=== PATIENT | female | born 1960 | race Caucasian/White ===

== ENCOUNTER 2017-05-20 03:12 | Emergency (ER) | payer BC ==
[~2017-05-20] VITALS: Ht 157.5 cm; Wt 50.4 kg
[2017-05-20 03:21] VITALS: TEMP 36.5; Ht 157.5 cm; Wt 50.4 kg
[2017-05-20] MEDS ORDERED: ONDANSETRON INJ 2 MG/ML 2 ML VIAL IV STA (03:33)
[2017-05-20] MEDS ORDERED: SODIUM CHLORIDE 0.9% 1000ML 1,000 ML IV STA ×2 (03:33)
[2017-05-20] MEDS ORDERED: MoRPHine SULFATE 4 MG/ML 1 ML CARP\\VIAL IV STA (03:33)
[2017-05-20 04:05] LABS: BASO % 0.6 %; BASO ABS # 0.04 K/uL (0-0.2); COMPLETE YES; EOS % 3.5 %; HEMATOCRIT 37.5 % (37-47); IG% 0.1 %; LYMPH % 30.2 %; LYMPH ABS # 2.05 K/uL (1.2-3.4); MEAN CELL VOLUME 94.5 fL (80-100); MEAN CORPUSCULAR HEMOGLOBIN 31.2 pg (25-34); MEAN CORPUSCULAR HGB CONC 33.1 g/dl (32-36); MONO % 10.9 %; NEUT % 54.7 %; PLATELET COUNT 150 K/uL (130-400); RED BLOOD COUNT 3.97 M/uL (4.2-5.4); WHITE BLOOD COUNT 6.79 K/uL (4.8-10.8)
[2017-05-20] MEDS ORDERED: CEPH500C2 PO (04:08)
[2017-05-20] MEDS ORDERED: OPTIRAY 320 IV PRN (04:15)
[2017-05-20 04:27] LABS: ALKALINE PHOSPHATASE 73 U/L (45-117); ALT/SGPT 35 U/L (12-78); AST/SGOT 35 U/L (15-37); BLOOD UREA NITROGEN 20 mg/dl (7-18); CALCIUM 8.9 mg/dl (8.5-10.1); CARBON DIOXIDE 25 mmol/L (21-32); CHLORIDE 108 mmol/L (98-107); GLUCOSE 139 mg/dl (70-99); SODIUM 140 mmol/L (136-145)
[2017-05-20] MEDS ORDERED: HYDROmorphone INJ 0.5 MG/0.5 ML SYR IV STA (04:33)
[2017-05-20 04:54] LABS: PREG INTERNAL NEGATIVE QC NEG CLEAR BACKGROUND; PREG INTERNAL POSITIVE QC POS CONTROL LINE
[2017-05-20 05:36] VITALS: BP 108/50; PULSE 67; O2SAT 97
[2017-05-20] MEDS ORDERED: KETOROLAC TROMETHAMINE 30 MG/ML VIAL IV STA (05:43)
[2017-05-20] MEDS ORDERED: OXYCODONE IR HOME PACK PO ONE (05:45)
[2017-05-20] MEDS ORDERED: ONDANSETRON HOME PACK 4MG OD TAB PO ONE (05:45)
[2017-05-20 06:02] LABS: URINE APPEARANCE CLEAR (CLEAR); URINE BILIRUBIN NEG (NEG); URINE COLOR YELLOW; URINE NITRITE NEG (NEG); URINE SPECIFIC GRAVITY > 1.045 (1.000-1.030); UROBILINOGEN NEG (NEG); ZZUR CULT IF INDIC CLEAN CATCH NO
[2017-05-20 06:13] LABS: MANUAL MICROSCOPIC REQUIRED? NO; REVIEW REQ? NO
--- NOTE | 2017-05-20 06:26 | EMERGENCY ROOM VISIT NOTE ---
History First contact with patient: 03:25 Chief Complaint: ABDOMINAL PAIN Stated Complaint: PAIN LT SIDE History of Present Illness The patient is a 56 year old female who presents to the Emergency Room with complaints of severe sudden onset of left side abdominal pain currently 10 out of 10. This pain woke her up from sleep. No history kidney stones. No history of ischemic colitis. Patient is postmenopausal. She has a virgin abdomen. Patient states nothing makes the pain better or worse. It does not radiate. Patient denies chest pain, dyspnea, fever, chills, vomiting, diarrhea , back pain, urinary symptoms. No injury to the area. Review of Systems See HPI for pertinent positives & negatives. A total of 10 systems reviewed and were otherwise negative. Past Medical/Surgical History None Social History Smoking Status: Never Smoker Smokeless Tobacco Use: No Alcohol Use: none Drug Use: none Marital Status: Housing Status: lives with family Current/Historical Medications Scheduled Cephalexin Monohydrate (Keflex), 500 MG PO PRN Allergies Coded Allergies: Attapulgite (Verified Allergy, Unknown, 05/20/17) Sulfa Drugs (Verified Allergy, Unknown, 05/20/17) Uncoded Allergies: *KAOLIN/PECTIN (Generic Allergy) (Allergy, Unknown, Y, 05/20/17) SULFA, KAOPECTATE (Allergy, Unknown, 11/08/02) Physical Exam Vital Signs Date Time Temp Pulse Resp B/P (MAP) Pulse Ox O2 Delivery O2 Flow Rate FiO2 05/20/17 05:36 67 16 108/50 97 Room Air 05/20/17 03:50 Room Air 05/20/17 03:21 36.5 69 20 143/57 100 Room Air Physical Exam VITALS: Vitals are noted on the nurse's note and reviewed by myself. Vital signs stable. GENERAL: White female writhing in pain, nondiaphoretic, well-developed well- nourished. SKIN: The skin was without rashes, erythema, edema, or bruising. There is no tenting of the skin. Capillary reflex less than 2 seconds. HEAD: Normocephalic atraumatic. EARS: External auditory canals clear, tympanic membranes pearly frankel without erythema or effusion bilaterally. EYES: Pupils equal round and reactive to light and accommodation. Conjunctivae without injection, sclerae without icterus. Extraocular movements intact. NOSE: Patent, turbinates without inflammation or discharge. MOUTH: Mucous membranes moist. Pharynx without erythema or exudate. Uvula midline. Airway patent. Tongue does not deviate. NECK: Supple without nuchal rigidity. No lymphadenopathy. No thyromegaly. Cervical spine is nontender. No JVD. HEART: Regular rate and rhythm without murmurs gallops or rubs. LUNGS: Clear to auscultation bilaterally without wheezes, rales or rhonchi. No dullness to percussion. No retractions or accessory muscle use. ABDOMEN: Positive bowel sounds x 4. Normal tympanic percussion. Soft, tender to palpation left lower abdomen, no CVA tenderness, without masses or organomegaly. Cook sign negative. No guarding or rebound tenderness. MUSCULOSKELETAL: No muscle atrophy, erythema, or edema noted. NEURO: Patient was alert and oriented to person place and time. Normal sensation to light and sharp touch. No focal neurological deficits. Medical Decision & Procedures Laboratory Results 05/20/17 03:50 Red Blood Count 3.97, Mean Corpuscular Volume 94.5, Mean Corpuscular Hemoglobin 31.2, Mean Corpuscular Hemoglobin Concent 33.1, Mean Platelet Volume 10.0, Neutrophils (%) (Auto) 54.7, Lymphocytes (%) (Auto) 30.2, Monocytes (%) (Auto) 10.9, Eosinophils (%) (Auto) 3.5, Basophils (%) (Auto) 0.6, Neutrophils # (Auto ) 3.71, Lymphocytes # (Auto) 2.05, Monocytes # (Auto) 0.74, Eosinophils # (Auto ) 0.24, Basophils # (Auto) 0.04 05/20/17 03:50 Test 05/20/17 03:50 05/20/17 03:57 05/20/17 05:50 White Blood Count 6.79 K/uL (4.8-10.8) Red Blood Count 3.97 M/uL (4.2-5.4) Hemoglobin 12.4 g/dL (12.0-16.0) Hematocrit 37.5 % (37-47) Mean Corpuscular Volume 94.5 fL (80-100) Mean Corpuscular Hemoglobin 31.2 pg (25-34) Mean Corpuscular Hemoglobin Concent 33.1 g/dl (32-36) Platelet Count 150 K/uL (130-400) Mean Platelet Volume 10.0 fL (7.4-10.4) Neutrophils (%) (Auto) 54.7 % Lymphocytes (%) (Auto) 30.2 % Monocytes (%) (Auto) 10.9 % Eosinophils (%) (Auto) 3.5 % Basophils (%) (Auto) 0.6 % Neutrophils # (Auto) 3.71 K/uL (1.4-6.5) Lymphocytes # (Auto) 2.05 K/uL (1.2-3.4) Monocytes # (Auto) 0.74 K/uL (0.11-0.59) Eosinophils # (Auto) 0.24 K/uL (0-0.5) Basophils # (Auto) 0.04 K/uL (0-0.2) RDW Standard Deviation 47.6 fL (36.4-46.3) RDW Coefficient of Variation 13.7 % (11.5-14.5) Immature Granulocyte % (Auto) 0.1 % Immature Granulocyte # (Auto) 0.01 K/uL (0.00-0.02) Anion Gap 7.0 mmol/L (3-11) Est Creatinine Clear Calc Drug Dose 50.9 ml/min Estimated GFR () 74.0 Estimated GFR (Non- 63.8 BUN/Creatinine Ratio 20.0 (10-20) Calcium Level 8.9 mg/dl (8.5-10.1) Total Bilirubin 0.8 mg/dl (0.2-1) Direct Bilirubin mg/dl (0-0.2) Aspartate Amino Transf (AST/SGOT) 35 U/L (15-37) Alanine Aminotransferase (ALT/SGPT) 35 U/L (12-78) Alkaline Phosphatase 73 U/L (45-117) Total Protein 6.6 gm/dl (6.4-8.2) Albumin 3.7 gm/dl (3.4-5.0) Lipase 198 U/L (73-393) Human Chorionic Gonadotropin, Qual POS (NEG) Chemistry Specimen Hemolysis Bedside Lactic Acid Venous 2.65 mmol/L (0.90-1.70) Urine Color YELLOW Urine Appearance CLEAR (CLEAR) Urine pH 7.0 (4.5-7.5) Urine Specific [place] > 1.045 (1.000-1.030) Urine Protein NEG (NEG) Urine Glucose (UA) NEG (NEG) Urine Ketones 1+ (NEG) Urine Occult Blood 1+ (NEG) Urine Nitrite NEG (NEG) Urine Bilirubin NEG (NEG) Urine Urobilinogen NEG (NEG) Urine Leukocyte Esterase NEG (NEG) Urine WBC (Auto) 1-5 /hpf (0-5) Urine RBC (Auto) 5-10 /hpf (0-4) Urine Hyaline Casts (Auto) 1-5 /lpf (0-5) Urine Epithelial Cells (Auto) 10-20 /lpf (0-5) Urine Bacteria (Auto) NEG (NEG) Medications Administered Medications (Trade) Dose Ordered Sig/Angela Route Start Time Stop Time Status Last Admin Dose Admin Morphine Sulfate (MoRPHine SULFATE INJ) 4 mg NOW STAT IV 05/20/17 03:33 05/20/17 03:35 DC 05/20/17 04:03 4 MG Ondansetron HCl (Zofran Inj) 4 mg NOW STAT IV 05/20/17 03:33 05/20/17 03:35 DC 05/20/17 04:03 4 MG Sodium Chloride 1,000 ml @ 999 mls/hr Q1H1M STAT IV 05/20/17 03:33 05/20/17 04:33 DC 05/20/17 03:33 999 MLS/HR Hydromorphone HCl (Dilaudid Inj) 0.5 mg NOW STAT IV 05/20/17 04:33 05/20/17 04:34 DC 05/20/17 05:02 0.5 MG Ketorolac Tromethamine (Toradol Inj) 30 mg NOW STAT IV 05/20/17 05:43 05/20/17 05:44 DC 05/20/17 06:00 30 MG ED Course Prior records/ancillary studies reviewed. Triage Nursing notes reviewed. Additional history obtained from family. The patient's history was concerning for abdominal pain. Differential diagnosis: Etiologies such as appendicitis, diverticulitis, PUD, biliary pathology, UTI, pancreatitis, obstruction, mesenteric ischemia, aortic pathology, infections, inflammatory bowel disease, renal colic, as well as others were entertained. Physical examination findings: As above. ER treatment provided: Morphine, Dilaudid, Zofran, IV fluids On reassessment the patient felt better. Diagnostics interpreted by me: The labs revealed no leukocytosis, elevated lactic acid. Stable H&H Imaging studies: CT scan is concerning for left ureteral stone with hydronephrosis Exam and history seem consistent with left renal colic. Patient's pain was under control. She is advised to strain her urine and to follow-up urology to few days or here in the ER sooner for severe pain, fevers, vomiting, worsening signs or symptoms or as needed. Patient was neurovascularly and neurologically intact. She is well-appearing. No signs of UTI. By the evaluation outlined above emergent etiologies such as appendicitis, diverticulitis, PUD, biliary pathology, UTI, pancreatitis, obstruction, mesenteric ischemia, aortic pathology, infections, inflammatory bowel disease, as well as others were deemed relatively unlikely. The pt informed about the findings as listed above. All questions were answered and pleased with the treatment. Return instructions were outlined and the patient was discharged in stable condition. Outpatient prescription management: OxyIR, Zofran Referral: The patient was referred back to their primary care physician and urology for follow-up in 2 to 3 days for a recheck of the current condition. Case reviewed with my attending Medical Decision As above Impression Primary Impression: Renal colic on left side Departure Information Dispostion Home / Self-Care Condition GOOD Referrals No Doctor, Assigned (PCP) Patient Instructions My [facility] Additional Instructions DO NOT drive, drink alcohol, operate machinery, or perform dangerous activities today. You were given medications in the ER that can affect your ability to safely function or operate a vehicle. Oxycodone Immediate Release (OxyIR) 5mg: Take 1-2 pills every four hours for pain. Avoid alcohol, operating machinery or dangerous equipment, working on ladders or roofs, DRIVING, or situations where being under the influence may be dangerous. It is recommended to use an lyua-uir-vxyhzpz stool softener such as Colace, 100mg twice daily while taking this medication to avoid constipation. Zofran 4 mg: Take one every six hours as needed for nausea. Avoid alcohol, operating machinery or dangerous equipment, working on ladders or roofs, DRIVING , or situations where being under the influence may be dangerous. Ibuprofen(Motrin, Advil) may be used for fever or pain. Use 600mg every six hours as needed. Take with food. Avoid using more than 2400mg in a 24 hour period. Do not use 2400mg per day for more than three consecutive days without physician direction. Prolonged inappropriate use can lead to stomach upset or ulcers. This medication can be taken if you need to drive, work, or perform activities which may be dangerous when taking narcotic pain medication. (AND/OR) Acetaminophen(Tylenol) may be used for fever or pain. Use 1000mg every six hours as needed. Avoid using more than 3000mg in a 24 hour period. This medication can be taken if you need to drive, work, or perform activities which may be dangerous when taking narcotic pain medication. Strain your urine and collect all the stones or debris for the urologists. Rest and avoid strenuous activity until your stone passes and symptoms resolve. Drink plenty of fluids. Continue current medications. Return to the ER for worsening abdominal or back pain, vomiting, fevers, passing out, or as needed. Follow up with urology in 2-3 days, call for an appointment.
[2017-05-20] MEDS ORDERED: OXYC1TAB3 PO (06:31)
--- NOTE | 2017-05-20 07:57 | DIAGNOSTIC IMAGING REPORT ---
CT SCAN OF THE ABDOMEN AND PELVIS WITH IV CONTRAST CLINICAL HISTORY: Left-sided abdominal pain. COMPARISON STUDY: No priors. TECHNIQUE: Following the IV administration of 92 cc of Optiray 320, CT scan of the abdomen and pelvis is performed from the lung bases to the proximal femora. Images are reviewed in the axial, sagittal, and coronal planes. IV contrast was administered without complication. Automated dose control exposure was utilized. A dose lowering technique was utilized adhering to the principles of ALARA. CT DOSE: 245.47 mGy.cm FINDINGS: Lung bases: The heart is normal in size and without pericardial effusion. There is a fat-containing Bochdalek hernia at the left lung base. The lung bases are otherwise clear. Liver: The contrast-enhanced liver is normal in size, contour, and attenuation. There is no intrahepatic biliary ductal dilatation. The hepatic veins and portal veins are patent. Periportal edema is noted and likely related to hydration status. Gallbladder: Unremarkable. Spleen: Normal in size and attenuation. Pancreas: Unremarkable. Adrenal glands: Unremarkable. Kidneys: The contrast enhanced kidneys are normal in size. There is a 7 mm obstructing calculus at the left vesicoureteral junction seen on axial image #324. This causes mild to moderate left hydroureteronephrosis. There is associated left-sided perinephric stranding and fluid. Nonspecific urothelial thickening is seen within the left ureter and the left renal pelvis. At least 4 additional nonobstructing left renal calculi measuring up to 5 mm. No right renal calculi are clearly identified on this contrast-enhanced examination. A 2.3 cm cyst is noted in the interpolar left kidney. The kidneys enhance symmetrically. Abdominal vasculature: The abdominal aorta is normal in course and caliber. Bowel: The small bowel and colon are normal in course and caliber. The appendix is well-visualized and normal. Peritoneum: There is no intraperitoneal free air or abdominal ascites. There is a small fat-containing umbilical hernia. Lymphadenopathy: None. Pelvic viscera: The bladder, uterus, and adnexa are normal as visualized. Skeletal structures: The skeletal structures are osteopenic. No lytic or blastic lesions are seen. IMPRESSION: 1. There is a 7 mm obstructing calculus at the left vesicoureteral junction. This causes mild to moderate left-sided hydroureteronephrosis. 2. Additional nonobstructing left calculi are identified. 3. Nonspecific urothelial thickening is seen in lateral renal pelvis and the left ureter. This is likely related to obstruction. Correlate clinically and with urinalysis for evidence of superimposed infection. 4. There is hepatic periportal edema, likely related to aggressive fluid resuscitation. Electronically signed by: Ramos Piper M.D. 05/20/2017 7:56 AM Dictated Date/Time: 05/20/2017 7:49 AM
[2017-06-09] MEDS ORDERED: TRIA1SPR4 NAE (14:12)
[2017-06-09] MEDS ORDERED: PRMVC TOP (14:12)
[2017-06-10] MEDS ORDERED: HYDR-3419 PO (11:05)
== END 2017-05-20 06:50 | disposition home or self-care (01) ==
LOC: C.EDB 03:13
DX: N23 Unspecified renal colic (principal)

== ENCOUNTER → 2017-06-07 | Outpatient (CLI) | payer BC ==
[~2017-06-07] MED LIST: CEPH500C2 PO; HYDR-3419 PO; OXYC1TAB3 PO; PRMVC TOP; TRIA1SPR4 NAE
--- NOTE | 2017-06-07 08:46 | DIAGNOSTIC IMAGING REPORT ---
KUB CLINICAL HISTORY: N39.0 Urinary tract [id number] COMPARISON STUDY: No previous studies for comparison. FINDINGS: The soft tissues, psoas shadows, renal outlines and intestinal gas pattern appear normal. There is no evidence for bowel obstruction. No abnormal abdominal calcifications are seen. IMPRESSION: Normal study. The above report was generated using voice recognition software. It may contain grammatical, syntax or spelling errors. Electronically signed by: Alonso Adhikari M.D. 06/07/2017 8:44 AM Dictated Date/Time: 06/07/2017 8:44 AM
== END | disposition home or self-care (01) ==
LOC: C.RAD 08:24
PROVIDERS: ATTEND Urology
DX: N39.0 Urinary tract infection, site not specified (principal)

== ENCOUNTER → 2017-06-08 | Outpatient (CLI) | payer BC ==
--- NOTE | 2017-06-08 18:29 | DIAGNOSTIC IMAGING REPORT ---
CHEST 2 VIEWS ROUTINE CLINICAL HISTORY: NEPHROLITHIASIS preoperative evaluation COMPARISON STUDY: No previous studies for comparison. FINDINGS: The bones soft tissues and hemidiaphragms are normal. The cardiomediastinal silhouette is normal. The lungs are clear. The pulmonary vasculature is normal. IMPRESSION: Negative chest. The above report was generated using voice recognition software. It may contain grammatical, syntax or spelling errors. Electronically signed by: Alonso Adhikari M.D. 06/08/2017 6:27 PM Dictated Date/Time: 06/08/2017 6:27 PM
[2017-06-08 18:59] LABS: PREG INTERNAL NEGATIVE QC NEG CLEAR BACKGROUND; PREG INTERNAL POSITIVE QC POS CONTROL LINE
== END | disposition home or self-care (01) ==
LOC: C.CPL 17:45
PROVIDERS: ATTEND Urology
DX: E34.9 Endocrine disorder, unspecified (principal); N20.0 Calculus of kidney

== ENCOUNTER → 2017-06-10 | Day surgery (SDC) | payer BC ==
[2017-06-09 14:12] VITALS: Ht 157.5 cm; Wt 48.6 kg
[~2017-06-10] VITALS: Ht 157.5 cm; Wt 48.6 kg
[~2017-06-10] MED LIST changes: +ATROPINE SULFATE 0.1 MG/ML 5ML SYR IV PRN; +CIPROFLOXACIN / D5W 400 MG IV SCH; +DEXAMETHASONE SOD INJ 4 MG/ML VIAL ONE; +EpHEDrine SULFATE INJ 50 MG/ML AMP IV PRN; +FENTANYL CITRATE INJ 50 MCG/1 ML 2 ML VIAL IV PRN; +FENTANYL CITRATE INJ 50 MCG/1 ML 2 ML VIAL ONE; +LACTATED RINGER'S 1000ML 1,000 ML IV SCH; +LIDOCAINE HCL 2% 2 ML VIAL (20MG/ML) ONE; +MIDAZOLAM HCL 1 MG/ML 2ML VIAL ONE; +ONDANSETRON INJ 2 MG/ML 2 ML VIAL ONE; -OXYC1TAB3 PO; +PROPOFOL IV EMULSION 10 MG/ML 20 ML VIAL IV ONE
--- NOTE | 2017-06-10 08:11 | DIAGNOSTIC IMAGING REPORT ---
KUB HISTORY: Left ureteral stone. COMPARISON: Abdomen and pelvis CT 05/20/2017. FINDINGS: The bowel gas pattern is unremarkable. There are no dilated loops of small bowel to suggest an obstruction. No change in the 5 mm stone within the left ureterovesical junction. No right ureteral calculi. A few punctate left renal calculi remain unchanged. No definite right renal calculi. No pneumoperitoneum or pneumatosis. IMPRESSION: 1. No change in the 5 mm stone within the left ureterovesical junction. 2. Stable left-sided nephrolithiasis. Electronically signed by: Luis Larkin M.D. 06/10/2017 8:09 AM Dictated Date/Time: 06/10/2017 8:08 AM
--- NOTE | 2017-06-10 09:45 | History & Physical Bridge - SC ---
H&P Re-Evaluation Bridge Note: I have examined the patient, reviewed the History & Physical and in the interval since the performance of the History & Physical I have noted the following changes of clinical significance: No changes noted
--- NOTE | 2017-06-10 10:34 | Discharge Instructions-SurgCtr ---
Discharge Instructions Date of Service Jun 10, 2017. Visit Reason for Visit: Stones Discharge Discharge Diagnosis / Problem: post op l ureteral eswl Discharge Goals Goal(s): Improve disease control Medications Stopped Medications Name(s): Pt. was told not to take any Ibuprofen. Activity Recommendations Activity Limitations: resume your previous activity Anesthesia . Post Anesthesia Instructions: If you have had General Anesthesia or IV Sedation: * Do not drive today. * Resume driving when surgeon permits. * Do not make important decisions or sign legal documents today. * Call surgeon for: 1. Temperature elevations greater than 101 degrees F. 2. Uncontrollable pain. 3. Excessive bleeding. 4. Persistent nausea and vomiting. 5. Medication intolerance (nausea, vomiting or rash). * For nausea and vomiting use only clear liquids such as: tea, soda, bouillon until nausea subsides, then gradually increase diet as tolerated. * If you have any concerns or questions, call your surgeon's office. If physician is unavailable and it is an emergency, call 911 or go to the nearest emergency room. . Diet Recommendations Home Diet: resume previous diet Procedures Procedures Performed: Left Extracorporeal Shock Wave Lithotripsy Pending Studies Studies pending at discharge: no Medical Emergencies . Who to Call and When: Medical Emergencies: If at any time you feel your situation is an emergency, please call 911 immediately. . Non-Emergent Contact Non-Emergency issues call your: Urologist . . "Provider Documentation" section prepared by Otis Gaona. .
--- NOTE | 2017-06-10 10:35 | [facility] Post Operative Brief Note ---
Immediate Operative Summary Operative Date Jun 10, 2017. Pre-Operative Diagnosis Left Ureteral Stone Post-Operative Diagnosis Same Procedure(s) Performed Left Extracorporeal Shock Wave Lithotripsy Surgeon Dr. Gaona Abrasives Sales Representative Surgeon(s) None Estimated Blood Loss 0 mL Findings stone appeared contract associate Specimens None
--- NOTE | 2017-06-10 10:55 | Anesthesia Progress Nt - [facility] ---
Anesthesia Post Op Note Date & Time Jun 10, 2017 at 10:54 Vital Signs Pain Intensity: 0 Vital Signs Past 12 Hours Date Time Temp Pulse Resp B/P (MAP) Pulse Ox O2 Delivery O2 Flow Rate FiO2 06/10/17 10:35 36.3 70 12 129/84 100 Diffusion Mask 5 06/10/17 08:16 36.3 65 16 115/71 (86) 98 Room Air Notes Mental Status: alert / awake / arousable, participated in evaluation Pt Amnestic to Procedure: Yes Nausea / Vomiting: adequately controlled Pain: adequately controlled Airway Patency, RR, SpO2: stable & adequate BP & HR: stable & adequate Hydration State: stable & adequate Anesthetic Complications: no major complications apparent
--- NOTE | 2017-06-10 11:09 | OPERATIVE REPORT ---
DATE OF OPERATION: 06/10/2017 PREOPERATIVE DIAGNOSIS: Left ureterovesical junction stone. POSTOPERATIVE DIAGNOSIS: Same. PROCEDURE PERFORMED: Left ureteral ESWL. SURGEON: Dr. Gaona. ANESTHESIA: General. INDICATIONS: The patient is a 56-year-old female with a history of a left UVJ stone being diagnosed on CT scan. The patient did not have any surrounding phleboliths. Thus she presented to my office. Her pain was moderately well controlled, but she did still have some urgency. She came back after 10 days and had a KUB that showed persistence of a calcification consistent with a stone at the left UVJ. We discussed options including lithotripsy, ureteroscopy and further observation. She wished to proceed with lithotripsy. I did observe her previous labs and it was apparent she had a positive test at the hospital prior to CT scan. Repeated this, it was also positive, but then did HCG which showed HCG was 4, which is just above normal not consistent with . Also, she had previously not had any periods for many years, consistent with being menopausal. I did discuss this with Dr. Lara who suggested there was extraneous activity probably with the serum and that HCG was not consistent with which the guidelines for the values of HCG showed. In addition, we tested her urine test today and it was negative. Thus we proceeded with lithotripsy. DESCRIPTION OF THE PROCEDURE: The patient was taken to the operating room, given general anesthesia. She had Venodyne stockings placed prior to this and then was given antibiotics. The stone was visualized. She was given 3000 shocks, the majority at level 5. We did not go to 6. At the end of the procedure, there was no visible stone. The patient was transferred to the recovery room in stable condition. I attest to the content of the Intraoperative Record and any orders documented therein. Any exceptions are noted below. MATTHEW
[2017-06-10 11:13] VITALS: TEMP 36.4
[2017-06-10 11:54] VITALS: BP 134/62; PULSE 53; O2SAT 100
== END | disposition home or self-care (01) ==
LOC: X.SURG 07:55
PROVIDERS: ATTEND Urology
DX: N20.1 Calculus of ureter (principal); N30.00 Acute cystitis without hematuria; N39.0 Urinary tract infection, site not specified; N76.2 Acute vulvitis

== ENCOUNTER → 2017-06-21 | Outpatient (CLI) | payer BC ==
[~2017-06-21] MED LIST changes: -ATROPINE SULFATE 0.1 MG/ML 5ML SYR IV PRN; -CIPROFLOXACIN / D5W 400 MG IV SCH; -DEXAMETHASONE SOD INJ 4 MG/ML VIAL ONE; -EpHEDrine SULFATE INJ 50 MG/ML AMP IV PRN; -FENTANYL CITRATE INJ 50 MCG/1 ML 2 ML VIAL IV PRN; -FENTANYL CITRATE INJ 50 MCG/1 ML 2 ML VIAL ONE; -LACTATED RINGER'S 1000ML 1,000 ML IV SCH; -LIDOCAINE HCL 2% 2 ML VIAL (20MG/ML) ONE; -MIDAZOLAM HCL 1 MG/ML 2ML VIAL ONE; -ONDANSETRON INJ 2 MG/ML 2 ML VIAL ONE; -PROPOFOL IV EMULSION 10 MG/ML 20 ML VIAL IV ONE
--- NOTE | 2017-06-21 07:43 | DIAGNOSTIC IMAGING REPORT ---
KUB CLINICAL HISTORY: N20.0 nephrocalcinosis COMPARISON STUDY: 06/10/2017 FINDINGS: The soft tissues, psoas shadows, renal outlines and intestinal gas pattern appear normal. There is no evidence for bowel obstruction. Several left renal abdominal calcifications are seen. Calcifications process described distal left ureter appears to have passed. IMPRESSION: 1. Interval passage of the distal left ureteral calculus. 2. Unchanging left nephrocalcinosis. The above report was generated using voice recognition software. It may contain grammatical, syntax or spelling errors. Electronically signed by: Alonso Adhikari M.D. 06/21/2017 7:41 AM Dictated Date/Time: 06/21/2017 7:39 AM
== END | disposition home or self-care (01) ==
LOC: C.RAD 07:17
PROVIDERS: ATTEND Urology
DX: N20.0 Calculus of kidney (principal)

== ENCOUNTER → 2017-06-22 | Outpatient (CLI) | payer BC | END | disposition home or self-care (01) | LOC: C.LABSPEC 11:33 | PROVIDERS: ATTEND Urology | DX: N20.0 Calculus of kidney (principal) ==

== ENCOUNTER → 2017-12-09 | Outpatient (CLI) | payer OTHER ==
--- NOTE | 2017-12-09 13:54 | MAMMOGRAPHY REPORT ---
BILATERAL DIGITAL SCREENING MAMMOGRAM TOMOSYNTHESIS WITH CAD: 12/09/2017 CLINICAL HISTORY: Routine screening. Patient has no complaints. TECHNIQUE: Breast tomosynthesis in addition to standard 2D mammography was performed. Current study was also evaluated with a Computer Aided Detection (CAD) system. COMPARISON: Comparison is made to exam dated: 04/08/2009. BREAST COMPOSITION: The tissue of both breasts is heterogeneously dense, which may obscure small mas ses. FINDINGS: No suspicious masses, calcifications, or areas of architectural distortion are noted in ei ther breast. There has been no significant interval change compared to prior exams. IMPRESSION: ACR BI-RADS CATEGORY 1: NEGATIVE There is no mammographic evidence of malignancy. A 1 year screening mammogram is recommended. The pa tient will receive written notification of the results. Approximately 10% of breast cancers are not detected with mammography. A negative mammographic report should not delay biopsy if a clinically suggestive mass is present. Hermila Allen M.D. ah/:12/09/2017 09:05:19 Secretary Office Clerk: Little ROBERTSON(Nidia)(M), [facility] letter sent: Normal 1/2 BI-RADS Code: ACR BI-RADS Category 1: Negative
== END | disposition home or self-care (01) ==
LOC: C.MAMM 08:27
PROVIDERS: ATTEND Obstetrics & Gynecology
DX: Z12.31 Encounter for screening mammogram for malignant neoplasm of breast (principal)

== ENCOUNTER → 2017-12-27 | Outpatient (CLI) | payer OTHER ==
[~2017-12-27] MED LIST changes: -HYDR-3419 PO
== END | disposition home or self-care (01) ==
LOC: C.PAPS 11:35
PROVIDERS: ATTEND Obstetrics & Gynecology
DX: Z12.4 Encounter for screening for malignant neoplasm of cervix (principal)